=== PATIENT | female | born 1930 | race Caucasian/White ===

== ENCOUNTER 2019-02-01 08:08 | Inpatient (IN) ==
--- NOTE | 2019-02-01 08:11 | Emergency Department Note ---
Disposition Clinical Impression: Atrial fibrillation with RVR, Anemia, UTI (urinary tract infection) Disposition: Home, Self-Care Condition: Fair General Adult HPI - General Stated complaint: Tachycardia Time Seen by Provider: 02/01/19 08:09 Nursing Notes Reviewed: Yes Vital Signs Reviewed: Yes - Related Data Home Medications Medication Instructions Recorded Confirmed Cipro 06/30/17 Risperdal 0.5 mg PO 06/30/17 amLODIPine 5 mg PO DAILY 06/30/17 02/01/19 Bisacodyl 10 mg RC PRN PRN 02/01/19 02/01/19 Buspirone HCl 5 mg PO TID 02/01/19 02/01/19 Citalopram 10 mg PO DAILY 02/01/19 02/01/19 Cranberry 450 mg PO DAILY 02/01/19 02/01/19 Memantine 5 mg PO BID 02/01/19 02/01/19 MiraLAX 17 gm PO PRN PRN 02/01/19 02/01/19 Tylenol 325mg SUPP 325 mg PO DAILY 02/01/19 02/01/19 Ultram 50 mg PO PRN PRN 02/01/19 02/01/19 Previous Rx's Medication Instructions Recorded Nitrofurantoin Monohyd/M-Cryst 100 mg PO BID #10 capsule 06/30/17 [Macrobid 100 mg Capsule] Phenazopyridine HCl [Pyridium] 200 mg PO TIDAC #6 tab 06/30/17 Allergies Allergy/AdvReac Type Severity Reaction Status Date / Time Penicillins [PCN] Allergy Rash Verified 06/30/17 13:12 Sulfa (Sulfonamide Allergy Hives Verified 02/01/19 12:37 Antibiotics) Past Medical History - Past Medical History Medical history: Reports: dementia, hypertension, myocardial infarction, renal disease, other Psychiatric history: Reports: no psych history - Social History Smoking Status: Never smoker Smokeless Tobacco Status: No Alcohol use: Reports: none Drug use: Reports: none Course Vital Signs Temperature 98.5 F 02/01/19 08:09 Pulse Rate 118 02/01/19 08:09 Respiratory Rate 22 02/01/19 08:09 Blood Pressure 112/76 02/01/19 08:09 O2 Sat by Pulse Oximetry 95 02/01/19 08:09 Temperature 98.2 F 02/01/19 11:31 Pulse Rate 102 02/01/19 11:31 Respiratory Rate 22 02/01/19 11:31 Blood Pressure 122/79 02/01/19 11:31 O2 Sat by Pulse Oximetry 89 02/01/19 11:31 Oxygen Delivery Oxygen Delivery Room Air Medical Decision Making - MDM Narrative Medical decision making narrative: Chest X-Ray 02/01/19 08:09 IMPRESSION: Cardiomegaly with pulmonary vascular congestion and small left pleural effusion with left basilar atelectasis/pneumonitis. D/ / Pollo Alaniz / Pollo Alaniz Interpreting Provider: Pollo Alaniz 0930 hrs.: Patient does have A. fib with RVR what appears to be new. Started her on Cardizem. Also put her on aspirin chest x-ray shows some pulmonary edema surrounding out on a BMP and then admit. Son's in agreement with plan. - Lab Data Result diagrams: 02/01/19 08:31 02/01/19 08:31 Lab Results 02/01/19 02/01/19 02/01/19 Range/Units 08:31 08:31 08:31 WBC 5.8 (4.3-11.1) K/mcL RBC 2.85 L (3.82-4.97) M/mcL Hgb 8.9 L (11.5-15.4) g/dL Hct 29.3 L (35.3-44.9) % MCV 102.8 H (83.0-100.0) fL MCH 31.2 (28.0-33.3) pg MCHC 30.4 L (31.6-35.5) g/dL RDW 19.6 H (11.5-14.5) % Plt Count 195 (140-400) K/mcL MPV 11.1 (9.4-12.4) fL Immature Gran % 0.7 (0-4) % Seg Neutrophils % 78.9 % Lymphocytes % 10.9 % Monocytes % 6.9 % Eosinophils % 1.9 % Basophils % 0.7 % Neutrophils # 4.6 (1.6-8.9) K/mcL Lymphocytes # 0.6 (0.6-4.6) K/mcL Monocytes # 0.4 (0.0-1.3) K/mcL Eosinophils # 0.1 (0.0-0.6) K/mcL Basophils # 0.0 (0.0-0.2) K/mcL Nucleated RBCs/100 WBC 0.5 H (0) /100 WBC PT 13.1 H (9.4-12.1) Seconds INR 1.2 APTT 34.9 (26.0-36.0) Seconds D-Dimer 2764 H (0-500) ng/mLFEU Sodium 141 (136-145) mEq/L Potassium 4.3 (3.5-5.1) mEq/L Chloride 109 H (98-107) mEq/L Carbon Dioxide 23 (23-29) mEq/L BUN 19 (8-23) mg/dL Creatinine 0.97 (0.60-1.20) mg/dL Est GFR ( Amer) > 60 (> 60) Est GFR (Non-Af Amer) 54 L (> 60) BUN/Creatinine Ratio 20 (6-26) Glucose 109 H (70-105) mg/dL Calculated Osmolality 295 (280-300) Calcium 8.9 (8.6-10.3) mg/dL Troponin I < 0.03 (< 0.04) ng/mL B-Natriuretic Peptide (Less than 100) pg/mL TSH 2.833 (0.340-5.600) mcIU/mL Urine Color (Yellow) Urine Clarity (Clear) Urine pH (5.0-8.0) pH Units Ur Specific [place] (1.010-1.025) Urine Protein (Neg-Trace) mg/dL Urine Glucose (UA) (Normal) mg/dL Urine Ketones (Negative) mg/dL Urine Blood (Negative) Urine Nitrite (Negative) Urine Bilirubin (Negative) Urine Urobilinogen (Normal) mg/dL Ur Leukocyte Esterase (Negative) Urine Microscopic RBC (0-3) per hpf Urine Microscopic WBC (0-3) per hpf Ur Squamous Epith Cells (None-Few) per lpf Ur Renal Epithelial Cell (None-Few) per hpf Urine Bacteria (None-Few) per hpf Hyaline Casts (None-Few) per lpf Ur Culture Indicated? (NO) 02/01/19 02/01/19 Range/Units 08:31 08:53 WBC (4.3-11.1) K/mcL RBC (3.82-4.97) M/mcL Hgb (11.5-15.4) g/dL Hct (35.3-44.9) % MCV (83.0-100.0) fL MCH (28.0-33.3) pg MCHC (31.6-35.5) g/dL RDW (11.5-14.5) % Plt Count (140-400) K/mcL MPV (9.4-12.4) fL Immature Gran % (0-4) % Seg Neutrophils % % Lymphocytes % % Monocytes % % Eosinophils % % Basophils % % Neutrophils # (1.6-8.9) K/mcL Lymphocytes # (0.6-4.6) K/mcL Monocytes # (0.0-1.3) K/mcL Eosinophils # (0.0-0.6) K/mcL Basophils # (0.0-0.2) K/mcL Nucleated RBCs/100 WBC (0) /100 WBC PT (9.4-12.1) Seconds INR APTT (26.0-36.0) Seconds D-Dimer (0-500) ng/mLFEU Sodium (136-145) mEq/L Potassium (3.5-5.1) mEq/L Chloride (98-107) mEq/L Carbon Dioxide (23-29) mEq/L BUN (8-23) mg/dL Creatinine (0.60-1.20) mg/dL Est GFR ( Amer) (> 60) Est GFR (Non-Af Amer) (> 60) BUN/Creatinine Ratio (6-26) Glucose (70-105) mg/dL Calculated Osmolality (280-300) Calcium (8.6-10.3) mg/dL Troponin I (< 0.04) ng/mL B-Natriuretic Peptide 631 H (Less than 100) pg/mL TSH (0.340-5.600) mcIU/mL Urine Color Dark Yellow (Yellow) Urine Clarity Cloudy A (Clear) Urine pH 5.0 (5.0-8.0) pH Units Ur Specific [place] 1.025 (1.010-1.025) Urine Protein 30 H (Neg-Trace) mg/dL Urine Glucose (UA) Normal (Normal) mg/dL Urine Ketones Negative (Negative) mg/dL Urine Blood Small H (Negative) Urine Nitrite Negative (Negative) Urine Bilirubin Negative (Negative) Urine Urobilinogen Normal (Normal) mg/dL Ur Leukocyte Esterase Moderate H (Negative) Urine Microscopic RBC 5-15 H (0-3) per hpf Urine Microscopic WBC 5-15 H (0-3) per hpf Ur Squamous Epith Cells Many H (None-Few) per lpf Ur Renal Epithelial Cell Many H (None-Few) per hpf Urine Bacteria Many H (None-Few) per hpf Hyaline Casts None Seen (None-Few) per lpf Ur Culture Indicated? YES A (NO) Critical Care Time Critical Care Time: Yes Total Critical Care Time: 30 Attestation: Excluding separately billable procedures. Attestation Statement - Attestation Attestation: This documentation is done with the assistance of Dragon dictation. Despite efforts made to ensure accuracy, there may be inaccuracies in tree specialist or spelling and typographical errors. I examined this patient and my medical decision-making was reviewed with the Resident Physician. I agree with the documented findings, disposition and treatment plan as described except to the extent set forth below. Patient was seen and evaluated today by Dr. Adair and myself, I agree with her evaluation and management plan, I supervised the care the patient's stay. Patient was transported in per EMS. She is in a memory care unit and is a DNR CC comfort care. Her son is apparently on away N. She is not able to tell us that anything wrong she denies any problems. Apparently they sent her in case she was tachycardic at heart rate of 1:15 at the nursing facility. We did an EKG and chest x-ray that we will talk to the son and see what he would like to have done.
--- NOTE | 2019-02-01 08:17 | Emergency Department Note ---
Disposition Clinical Impression: Atrial fibrillation with RVR Anemia Qualifiers: Anemia type: unspecified type Qualified Code(s): D64.9 - Anemia, unspecified UTI (urinary tract infection) Qualifiers: Urinary tract infection type: acute cystitis Hematuria presence: with hematuria Qualified Code(s): N30.01 - Acute cystitis with hematuria Disposition: Home, Self-Care Condition: Fair General Adult HPI - General Chief complaint: ED Arrhythmia/Palpitations Stated complaint: Tachycardia Time Seen by Provider: 02/01/19 08:09 Nursing Notes Reviewed: Yes Vital Signs Reviewed: Yes - History of Present Illness HPI Narrative: 80-year-old female with history of dementia, CAD who presents the emergency room with complaints of tachycardia. The patient is a longtime nursing facility resident and was noted to have tachycardia in the 120s. She has no history of atrial fibrillation but the son is unsure of her medications. She has been on antibiotics for a urinary tract infection, starting last Monday. The patient's history is limited given the patient has dementia. - Related Data Home Medications Medication Instructions Recorded Confirmed Cipro 06/30/17 Risperdal 06/30/17 amLODIPine 06/30/17 Bisacodyl 10 mg RC PRN PRN 02/01/19 02/01/19 Buspirone HCl 5 mg PO TID 02/01/19 02/01/19 Citalopram 10 mg PO DAILY 02/01/19 02/01/19 Cranberry 450 mg PO DAILY 02/01/19 02/01/19 Memantine 5 mg PO BID 02/01/19 02/01/19 MiraLAX 17 gm PO PRN PRN 02/01/19 02/01/19 Tylenol 325mg SUPP 325 mg PO DAILY 02/01/19 02/01/19 Ultram 50 mg PO PRN PRN 02/01/19 02/01/19 Previous Rx's Medication Instructions Recorded Nitrofurantoin Monohyd/M-Cryst 100 mg PO BID #10 capsule 06/30/17 [Macrobid 100 mg Capsule] Phenazopyridine HCl [Pyridium] 200 mg PO TIDAC #6 tab 06/30/17 Allergies Allergy/AdvReac Type Severity Reaction Status Date / Time Penicillins [PCN] Allergy Rash Verified 06/30/17 13:12 Review of Systems: ROS per history of present illness, all other systems reviewed and negative or normal. All systems ED: reviewed and negative except as stated. Review of Systems: As Per HPI Past Medical History - Past Medical History Medical history: Reports: dementia, hypertension, myocardial infarction, renal disease, other Psychiatric history: Reports: no psych history - Social History Smoking Status: Never smoker Smokeless Tobacco Status: No Alcohol use: Reports: none Drug use: Reports: none Physical Exam General: Conversant. No apparent distress. Follow commands. Appears stated age. Neck: No JVD. Trachea midline. Neck supple. Eyes: PERRL. No scleral icterus. HENT: Normocephalic and atraumatic. Moist mucus membranes. Cardiovascular: Tachycardic, irregularly irregular rhythm. Normal S1 and S2. No murmurs appreciated. Normal capillary refill. Extremities well perfused with 2+ distal pulses bilaterally. No edema. Pulmonary: Normal and equal breath sounds bilaterally, anteriorly and posteriorly. No wheezes, rales, or rhonchi. Not in respiratory distress. Speaks in full sentences. Abdomen: Soft, nondistended, and tontender. No bruits or masses. No guarding. Neuro: Alert, not oriented to time or place. No slurred speech. No focal deficits noted. Skin: No rashes noted on visualized skin. Musculoskeletal: No bony abnormalities visualized. Moves all extremities. Psych: Normal mood. Pleasant. Makes appropriate eye contact. Course - Consultations Consultation #1: Discussed case with specialty person, Dr. Hi who will consult to see the patient. He defers selection for anti-coagulation to hospitalist. Time: 10:21 Vital Signs Temperature 98.5 F 02/01/19 08:09 Pulse Rate 118 02/01/19 08:09 Respiratory Rate 22 02/01/19 08:09 Blood Pressure 112/76 02/01/19 08:09 O2 Sat by Pulse Oximetry 95 02/01/19 08:09 Temperature 98.2 F 02/01/19 11:31 Pulse Rate 102 02/01/19 11:31 Respiratory Rate 22 02/01/19 11:31 Blood Pressure 122/79 02/01/19 11:31 O2 Sat by Pulse Oximetry 89 02/01/19 11:31 Oxygen Delivery Oxygen Delivery Room Air Medical Decision Making - MDM Narrative Medical decision making narrative: Patient's an 88-year-old female with history of dementia who presents the emergency department due to tachycardia. This was found at her alf facility. On arrival the patient is alert and has no complaints but history is limited given her dementia. EKG shows atrial fibrillation with rapid ventricular rate with rate in the 120s to 130s. We did obtain CBC, BMP, BNP, chest x-ray which showed chronic baseline anemia without significant electrolyte abdomen now days. Chest x-ray shows cardiomegaly which is new from prior. The patient was given 10 mg bolus of Cardizem as well as started on a Cardizem drip she is now in the 70s. She did have mild hypotension with the bolus of Cardizem and was therefore given small fluid bolus. I discussed the case with on-call hospitalist, Dr. Webster who requests further evaluation for PE and consultation with cardiology to determine need for anticoagulation. D-dimer placed which hospitalist is to follow-up on. Spoke with specialty person, Dr. Hi who agrees with plan for admission and continued Cardizem drip but defers choice of anticoagulation given the patient's many risk factors including dementia and baseline anemia to the hospitalist. The patients Son is available at agrees with plan for admission. All questions answered. - Medical Records Medical records reviewed: Yes I reviewed the patient's medical records. - Lab Data Lab results reviewed: Yes I reviewed the patient's lab results. Result diagrams: 02/01/19 08:31 02/01/19 08:31 Lab Results 02/01/19 02/01/19 02/01/19 Range/Units 08:31 08:31 08:31 WBC 5.8 (4.3-11.1) K/mcL RBC 2.85 L (3.82-4.97) M/mcL Hgb 8.9 L (11.5-15.4) g/dL Hct 29.3 L (35.3-44.9) % MCV 102.8 H (83.0-100.0) fL MCH 31.2 (28.0-33.3) pg MCHC 30.4 L (31.6-35.5) g/dL RDW 19.6 H (11.5-14.5) % Plt Count 195 (140-400) K/mcL MPV 11.1 (9.4-12.4) fL Immature Gran % 0.7 (0-4) % Seg Neutrophils % 78.9 % Lymphocytes % 10.9 % Monocytes % 6.9 % Eosinophils % 1.9 % Basophils % 0.7 % Neutrophils # 4.6 (1.6-8.9) K/mcL Lymphocytes # 0.6 (0.6-4.6) K/mcL Monocytes # 0.4 (0.0-1.3) K/mcL Eosinophils # 0.1 (0.0-0.6) K/mcL Basophils # 0.0 (0.0-0.2) K/mcL Nucleated RBCs/100 WBC 0.5 H (0) /100 WBC PT 13.1 H (9.4-12.1) Seconds INR 1.2 APTT 34.9 (26.0-36.0) Seconds D-Dimer 2764 H (0-500) ng/mLFEU Sodium 141 (136-145) mEq/L Potassium 4.3 (3.5-5.1) mEq/L Chloride 109 H (98-107) mEq/L Carbon Dioxide 23 (23-29) mEq/L BUN 19 (8-23) mg/dL Creatinine 0.97 (0.60-1.20) mg/dL Est GFR ( Amer) > 60 (> 60) Est GFR (Non-Af Amer) 54 L (> 60) BUN/Creatinine Ratio 20 (6-26) Glucose 109 H (70-105) mg/dL Calculated Osmolality 295 (280-300) Calcium 8.9 (8.6-10.3) mg/dL Troponin I < 0.03 (< 0.04) ng/mL B-Natriuretic Peptide (Less than 100) pg/mL TSH 2.833 (0.340-5.600) mcIU/mL Urine Color (Yellow) Urine Clarity (Clear) Urine pH (5.0-8.0) pH Units Ur Specific [place] (1.010-1.025) Urine Protein (Neg-Trace) mg/dL Urine Glucose (UA) (Normal) mg/dL Urine Ketones (Negative) mg/dL Urine Blood (Negative) Urine Nitrite (Negative) Urine Bilirubin (Negative) Urine Urobilinogen (Normal) mg/dL Ur Leukocyte Esterase (Negative) Urine Microscopic RBC (0-3) per hpf Urine Microscopic WBC (0-3) per hpf Ur Squamous Epith Cells (None-Few) per lpf Ur Renal Epithelial Cell (None-Few) per hpf Urine Bacteria (None-Few) per hpf Hyaline Casts (None-Few) per lpf Ur Culture Indicated? (NO) 02/01/19 02/01/19 Range/Units 08:31 08:53 WBC (4.3-11.1) K/mcL RBC (3.82-4.97) M/mcL Hgb (11.5-15.4) g/dL Hct (35.3-44.9) % MCV (83.0-100.0) fL MCH (28.0-33.3) pg MCHC (31.6-35.5) g/dL RDW (11.5-14.5) % Plt Count (140-400) K/mcL MPV (9.4-12.4) fL Immature Gran % (0-4) % Seg Neutrophils % % Lymphocytes % % Monocytes % % Eosinophils % % Basophils % % Neutrophils # (1.6-8.9) K/mcL Lymphocytes # (0.6-4.6) K/mcL Monocytes # (0.0-1.3) K/mcL Eosinophils # (0.0-0.6) K/mcL Basophils # (0.0-0.2) K/mcL Nucleated RBCs/100 WBC (0) /100 WBC PT (9.4-12.1) Seconds INR APTT (26.0-36.0) Seconds D-Dimer (0-500) ng/mLFEU Sodium (136-145) mEq/L Potassium (3.5-5.1) mEq/L Chloride (98-107) mEq/L Carbon Dioxide (23-29) mEq/L BUN (8-23) mg/dL Creatinine (0.60-1.20) mg/dL Est GFR ( Amer) (> 60) Est GFR (Non-Af Amer) (> 60) BUN/Creatinine Ratio (6-26) Glucose (70-105) mg/dL Calculated Osmolality (280-300) Calcium (8.6-10.3) mg/dL Troponin I (< 0.04) ng/mL B-Natriuretic Peptide 631 H (Less than 100) pg/mL TSH (0.340-5.600) mcIU/mL Urine Color Dark Yellow (Yellow) Urine Clarity Cloudy A (Clear) Urine pH 5.0 (5.0-8.0) pH Units Ur Specific [place] 1.025 (1.010-1.025) Urine Protein 30 H (Neg-Trace) mg/dL Urine Glucose (UA) Normal (Normal) mg/dL Urine Ketones Negative (Negative) mg/dL Urine Blood Small H (Negative) Urine Nitrite Negative (Negative) Urine Bilirubin Negative (Negative) Urine Urobilinogen Normal (Normal) mg/dL Ur Leukocyte Esterase Moderate H (Negative) Urine Microscopic RBC 5-15 H (0-3) per hpf Urine Microscopic WBC 5-15 H (0-3) per hpf Ur Squamous Epith Cells Many H (None-Few) per lpf Ur Renal Epithelial Cell Many H (None-Few) per hpf Urine Bacteria Many H (None-Few) per hpf Hyaline Casts None Seen (None-Few) per lpf Ur Culture Indicated? YES A (NO) - Radiology Data Radiology results reviewed: Yes I reviewed the patient's radiology results. Chest X-Ray 02/01/19 08:09 IMPRESSION: Cardiomegaly with pulmonary vascular congestion and small left pleural effusion with left basilar atelectasis/pneumonitis. D/ / Pollo Alaniz / Pollo Alaniz Interpreting Provider: Pollo Alaniz - EKG Data EKG #1 EKG attestation: Yes I reviewed and interpreted this EKG. EKG results narrative: Atrial fibrillation rate of 127. When compared with prior atrial fibrillation with rapid ventricular rate is new as previous on 08/02/17 showed normal sinus rhythm.
[2019-02-01 08:41] LABS: Basophils % 0.7 %; Eosinophils # 0.1 K/mcL (0.0-0.6); Eosinophils % 1.9 %; Hematocrit 29.3 % (35.3-44.9); Hemoglobin 8.9 g/dL (11.5-15.4); Immature Granulocytes % 0.7 % (0-4); Lymphocytes # 0.6 K/mcL (0.6-4.6); Lymphocytes % 10.9 %; Mean Corpuscular HGB Conc 30.4 g/dL (31.6-35.5); Mean Corpuscular Hemoglobin 31.2 pg (28.0-33.3); Mean Corpuscular Volume 102.8 fL (83.0-100.0); Mean Platelet Volume 11.1 fL (9.4-12.4); Monocytes # 0.4 K/mcL (0.0-1.3); Monocytes % 6.9 %; Neutrophils # 4.6 K/mcL (1.6-8.9); Nucleated Red Blood Cells 0.5 /100 WBC (0); Platelet Count 195 K/mcL (140-400); Red Blood Count 2.85 M/mcL (3.82-4.97); Red Cell Distribution Width 19.6 % (11.5-14.5); Segmented Neutrophils % 78.9 %
[2019-02-01 08:50] LABS: INR 1.2; Prothrombin Time 13.1 Seconds (9.4-12.1)
[2019-02-01 08:52] LABS: Activated Partial Thrombo Time 34.9 Seconds (26.0-36.0)
[2019-02-01 09:02] LABS: BUN/Creatinine Ratio 20 (6-26); Blood Urea Nitrogen 19 mg/dL (8-23); Calcium 8.9 mg/dL (8.6-10.3); Carbon Dioxide 23 mEq/L (23-29); Chloride 109 mEq/L (98-107); Glucose 109 mg/dL (70-105); Osmolality,Calculated 295 (280-300); Potassium 4.3 mEq/L (3.5-5.1); Sodium 141 mEq/L (136-145); Troponin I < 0.03 ng/mL (< 0.04); eGFR For Non-African Americans 54 (> 60)
[2019-02-01 09:15] LABS: Thyroid Stimulating Hormone 2.833 mcIU/mL (0.340-5.600)
[2019-02-01 09:17] LABS: Bilirubin,Urine Negative (Negative); Blood,Urine Small (Negative); Clarity,Urine Cloudy (Clear); Color,Urine Dark Yellow (Yellow); Glucose,Urine (UA) Normal (Normal); Ketones,Urine Negative (Negative); Leukocyte Esterase,Urine Moderate (Negative); Nitrite,Urine Negative (Negative); Protein,Urine 30 mg/dL (Neg-Trace); Specific Gravity,Urine 1.025 (1.010-1.025); Urobilinogen,Urine Normal (Normal)
[2019-02-01 09:18] LABS: Squamous Epithelial Cell,Urine Many per lpf (None-Few)
[2019-02-01] MEDS ORDERED: Aspirin 81 MG TAB.CHEW PO STA (09:30)
[2019-02-01 09:32] LABS: Renal Epithelial Cells,Urine Many per hpf (None-Few)
[2019-02-01 09:33] LABS: Bacteria,Urine Many per hpf (None-Few); Hyaline Casts,Urine None Seen per lpf (None-Few)
[2019-02-01] MEDS ORDERED: 0.9 % Sodium Chloride 1,000 ML IVC ONE (10:02)
[2019-02-01] MEDS ORDERED: cefTRIAXone 1,000 MG in Water for inj. (sterile) 20 ML 10 ML IVP ONE (10:05)
[2019-02-01] MEDS ORDERED: Naloxone 0.4 MG/ML INJ IVP PRN (10:28)
[2019-02-01] MEDS ORDERED: 0.9 % Sodium Chloride 1,000 ML IVC SCH (10:30)
--- NOTE | 2019-02-01 10:35 | Internal Med History&Physical ---
Date of Encounter: 02/01/19 Time of Encounter: 10:33 Internal Medicine - H&P: HPI Chief complaint: rapid heart rate Admitted From: [facility] Plans for Post Hospital Care: Transfer Intermediate Facility History of present illness: Ms. Baldwin is a 88 year old female with history of CAD status post multiple stents last one 6 years ago and dementia presented to the emergency department from [facility] with tachycardia. As per son at bedside he was contacted by [facility] about patient's heart rate being in the 150s so was decided that she should come to the emergency department for further evaluation of her heart rate. Patient was seen and examined at bedside. Tony nted so most of the history was obtained by the family at bedside. Currently patient has no complaints and is unsure as to why she is in the hospital, when asked if she has any chest pain, palpitations, shortness of breath, cough, upper respiratory tract infections, leg swelling, orthopnea, PND, cough, nausea, vomiting, diarrhea she answers no. As per family at bedside she is extensive cardiac history with multiple stents placed last fall was 6 years ago. They are not sure as to what medications she is currently taking as the physician at the nursing facility Dr. Roldan has been adjusting her medications since she started living there. She ambulates with a walker and as per family she ambulates almost daily they deny prolonged immobilization. She denies any hematemesis, melena, hematochezia. While the emergency department she was found to be in A. fib with RVR, was started on Cardizem drip and cardiology was consulted for further recommendations and she was endorsed for further admission and management of her atrial fibrillation. I discussed CODE STATUS with the family and as per family they had already signed a DNR/DNI form of [facility] and would like to continue with the same CODE STATUS here at the hospital. Discussed anticoagulation and her increased risk of stroke in the family would like to hold off on anticoagulation understanding the risk and benefits until cardiology evaluates the patient. Past Med Surg Social Fam HX - Past Medical History Medical history: arthritis, dementia, hypertension, myocardial infarction, osteoporosis, renal disease, other Additional medical history: Alzheimers. Atherosclerosis. Diverticulosis. Insomnia Psychiatric history: anxiety - Past Surgical History Surgical History: angioplasty/stent (last one 6 years ago ) - Social History Smoking Status: Never smoker Smokeless Tobacco Status: No Alcohol use: none Drug use: none Internal Medicine - H&P: Meds Cipro 06/30/17 [History] Nitrofurantoin Monohyd/M-Cryst [Macrobid 100 mg Capsule] 100 mg PO BID #10 capsule 06/30/17 [Rx] Phenazopyridine HCl [Pyridium] 200 mg PO TIDAC #6 tab 06/30/17 [Rx] Risperdal 0.5 mg PO 06/30/17 [History] amLODIPine 5 mg PO DAILY 06/30/17 [History] Bisacodyl 10 mg RC PRN PRN 02/01/19 [History] Buspirone HCl 5 mg PO TID 02/01/19 [History] Citalopram 10 mg PO DAILY 02/01/19 [History] Cranberry 450 mg PO DAILY 02/01/19 [History] Memantine 5 mg PO BID 02/01/19 [History] MiraLAX 17 gm PO PRN PRN 02/01/19 [History] Tylenol 325mg SUPP 325 mg PO DAILY 02/01/19 [History] Ultram 50 mg PO PRN PRN 02/01/19 [History] Allergy/AdvReac Type Severity Reaction Status Date / Time Penicillins [PCN] Allergy Rash Verified 06/30/17 13:12 All Systems PM: A 10-system review of systems was performed and is negative for pertinent findings except as documented above in the HPI. - Constitutional Vitals: Temp Pulse Resp BP Pulse Ox 98.5 F 74 20 109/73 91 02/01/19 08:09 02/01/19 10:27 02/01/19 10:27 02/01/19 10:27 02/01/19 10:27 Exam: General: Patient is alert, no acute distress, pleasantly demented Head: atraumatic, normocephalic, Eye: normal appearance, PERRL, no scleral icterus, no conjunctival injection ENT: mucous membranes moist, normal external ear exam Neck: normal inspection, trachea midline, full ROM Chest: normal inspection, symmetric chest rise Respiratory: Good respiratory effort. Decreased breath sounds bilaterally, cannot appreciate any wheezing, occasional crackles in the posterior lung field. Cardiovascular: Irregularly irregular s1 and s2 No clicks, rubs, gallops, or murmors. Abdomen: Bowel sounds present normoactive x-4 quadrants. Abdomen is soft, nondistended. no Epigastric tenderness. No guarding or rebound. No organomegaly noted, musculoskeletal: Spontaneously moving all extremities. no edema, no calf tenderness, extensive varicose veins Skin: warm, dry, intact. Neuro: Alert and not oriented. Only answers yes or no to questions. This is her baseline as per family at bedside. Speeches comprehendible, no focal deficits Psych: Patient's affect is normal Internal Med - H&P Results - Labs CBC & Chem 7: 02/01/19 08:31 02/01/19 08:31 Labs: Short CBC 02/01/19 Range/Units 08:31 WBC 5.8 (4.3-11.1) K/mcL Hgb 8.9 L (11.5-15.4) g/dL Hct 29.3 L (35.3-44.9) % Plt Count 195 (140-400) K/mcL Neutrophils # 4.6 (1.6-8.9) K/mcL BMP 02/01/19 08:31 Sodium 141 Potassium 4.3 Chloride 109 H Carbon Dioxide 23 BUN 19 Creatinine 0.97 Glucose 109 H Calcium 8.9 Cardiac Enzymes 02/01/19 Range/Units 08:31 Troponin I < 0.03 (< 0.04) ng/mL Urine 02/01/19 Range/Units 08:53 Urine Color Dark Yellow (Yellow) Urine Clarity Cloudy A (Clear) Urine pH 5.0 (5.0-8.0) pH Units Ur Specific Herod 1.025 (1.010-1.025) Urine Protein 30 H (Neg-Trace) mg/dL Urine Glucose (UA) Normal (Normal) mg/dL - EKG Data -: EKG Interpreted by Myself (Atrial fibrillation with RVR, QT 503 Q waves in the anteroseptal leads) - Impressions ITS Impressions Chest X-Ray 02/01/19 08:09 IMPRESSION: Cardiomegaly with pulmonary vascular congestion and small left pleural effusion with left basilar atelectasis/pneumonitis. D/ / Pollo Alaniz / Pollo Alaniz Interpreting Provider: Pollo Alaniz - Assessment and Plan (1) Atrial fibrillation with RVR Current Visit: Yes Status: Acute Assessment and plan: First detected atrial fibrillation ? secondary to UTI and anemia Chads Vasc 5 Was started on Cardizem drip in the emergency department- continue Cardiology was consulted in the emergency department will follow recommendations I discussed anticoagulation with the family and they would like to hold off for now until cardiology evaluates the patient understanding the risks and benefits including stroke risks Echocardiogram troponin <0.03 TSH 2.8 (2) UTI (urinary tract infection) Current Visit: Yes Status: Resolved Assessment and plan: Continue with ceftriaxone Follow urine cultures Qualifiers: Urinary tract infection type: acute cystitis Hematuria presence: with hematuria Qualified Code(s): N30.01 - Acute cystitis with hematuria (3) Anemia Current Visit: Yes Status: Acute Assessment and plan: Acute on chronic Macrocytic anemia Hemoglobin is 8.9 was 9.8 on 11/29/2018. No signs of bleeding We will send B12, folate, iron panel, reticulocyte count, stool guaiac. Continue to monitor H&H closely Transfuse below 8 as she has history of cardiac disease. avoid antiplatelets and anticoagulation or NSAIDs follow H/H Q8H type an screen stat Qualifiers: Anemia type: unspecified type Qualified Code(s): D64.9 - Anemia, unspecified (4) Hypertension Current Visit: Yes Status: Acute Assessment and plan: Continue with home medications if not contraindicated. Qualifiers: Hypertension type: essential hypertension Qualified Code(s): I10 - Essential (primary) hypertension (5) Dementia Current Visit: Yes Status: Acute Assessment and plan: Continue with home medications if not contraindicated Fall precautions Qualifiers: Dementia type: unspecified type Dementia behavioral disturbance: without behavioral disturbance Qualified Code(s): F03.90 - Unspecified dementia without behavioral disturbance (6) Prolonged QT interval Current Visit: Yes Status: Acute Assessment and plan: QT of 502 was treated for UTI with Abx at halfway ?ciprofloxacin Avoid QT prolonging medications Magnesium ordered telemonitoring serial EKG next one at 4pm to evaluate QT (7) Goals of care, counseling/discussion Current Visit: Yes Status: Acute Assessment and plan: Goals of care discussed with and 2 children at bedside. As per family DNR CCA DNI has been signed at the halfway and they would like to continue with the same CODE STATUS while in the hospital. (8) DVT prophylaxis Current Visit: Yes Status: Acute Assessment and plan: scds - Time Spent With Patient Total time spent is greater than 50% in coordination of care (as documented) at patient's floor/unit and/or counseling patient:
[2019-02-01] MEDS ORDERED: Bisacodyl 10 MG RECTAL SUPPOSITORY RC PRN (11:01)
[2019-02-01 12:06] LABS: Immature Reticulocyte % 32.2 % (11.0-38.0); Retculocyte # 0.07 M/mcL (0.05-0.10); Reticulocyte % 2.6 % (1.6-2.8)
[2019-02-01 12:52] LABS: Folate > 22.3 ng/mL (3.0-16.0); Vitamin B12 486 pg/mL (250-1100)
[2019-02-01] MEDS ORDERED: 0.9 % Sodium Chloride 1,000 ML ONE (13:26)
--- NOTE | 2019-02-01 13:31 | Event Note ---
Date of Encounter: 02/01/19 Time of Encounter: 13:24 - Cardiology Event Note Attempted to see patient for consult. Patient with history of alzheimer's. Currently patient becoming more agitated and confused. Daughter at bedside trying to reason with patient and demanding that nurses give her "nerve medication." Daughter and patient unable to participate in conversation or exam. Primary team notified per RN. HR controlled prior to agitated state. Continue rate control. Ideally director of music AC would be recommended as she is high risk for CVA. Given anemia would defer AC until further evaluation of anemia. Daughter was able to say that she has no known history of anemia. She is a high fall risk also.
[2019-02-01] MEDS ORDERED: Isovue-370 500 ML BOTTLE IVP ONE (13:42)
[2019-02-01] MEDS: Pantoprazole 40 MG VIAL IVP SCH (13:50)
[2019-02-01] MEDS ORDERED: *HR* Heparin 5,000 UNIT/ML VIAL SQ SCH (14:00)
[2019-02-01] MEDS ORDERED: *HR* Heparin 5,000 UNIT/ML VIAL IVP PRN ×2 (15:22)
[2019-02-01] MEDS ORDERED: *HR* Heparin 5,000 UNIT/ML VIAL IVP ONE (15:22)
[2019-02-01] MEDS ORDERED: Furosemide 20 MG/2 ML VIAL IVP ONE (15:24)
[2019-02-01] MEDS ORDERED: Heparin 25,000 UNIT/250 ML D5W 25,000 UNIT/250 ML IV.SOLN IVC SCH (15:30)
[2019-02-01 15:50] LABS: Hematocrit 28.5 % (35.3-44.9); Hematocrit 28.6 % (35.3-44.9); Hemoglobin 8.6 g/dL (11.5-15.4); Mean Corpuscular HGB Conc 30.2 g/dL (31.6-35.5); Mean Corpuscular Hemoglobin 31.3 pg (28.0-33.3); Mean Corpuscular Volume 103.6 fL (83.0-100.0); Mean Platelet Volume 11.8 fL (9.4-12.4); Platelet Count 211 K/mcL (140-400); Red Blood Count 2.75 M/mcL (3.82-4.97); Red Cell Distribution Width 19.8 % (11.5-14.5)
--- NOTE | 2019-02-01 15:51 | Electrocardiograph Report ---
[address] [place] [address] Test Date: 2019-02-01 Pat Name: Jessica Baldwin Department: EXAM21 Room: 2NE27 Gender: F Roving Tester Laboratory: : 1930 Requested By: Severo Damico Order Number: [id number] Reading MD: Zoie Ospina Measurements Intervals [place] Rate: 79 P: [place]: QRS: 128 QRSD: 120 T: 99 QT: 438 QTc: 503 Interpretive Statements Atrial fibrillation Nonspecific intraventricular conduction delay Probable anterolateral infarct, age indeterm Electronically Signed On 02-01-2019 15:50:15 EDT by Zoie Ospina
[2019-02-01 15:59] LABS: INR 1.1; Prothrombin Time 12.5 Seconds (9.4-12.1)
[2019-02-01 20:57] LABS: Hematocrit 28.9 % (35.3-44.9); Hemoglobin 8.5 g/dL (11.5-15.4)
[2019-02-01] MEDS ORDERED: Perflutren Lipid Microsphere 1.3 ML in 0.9 % Sodium Chloride 8.7 ML IVP ONE (21:31)
[2019-02-02 05:31] LABS: Basophils # 0.1 K/mcL (0.0-0.2); Basophils % 0.9 %; Eosinophils # 0.1 K/mcL (0.0-0.6); Eosinophils % 2.3 %; Hematocrit 29.2 % (35.3-44.9); Hemoglobin 8.7 g/dL (11.5-15.4); Immature Granulocytes % 0.9 % (0-4); Lymphocytes # 1.1 K/mcL (0.6-4.6); Lymphocytes % 18.9 %; Mean Corpuscular HGB Conc 29.8 g/dL (31.6-35.5); Mean Corpuscular Hemoglobin 30.7 pg (28.0-33.3); Mean Corpuscular Volume 103.2 fL (83.0-100.0); Mean Platelet Volume 11.5 fL (9.4-12.4); Monocytes # 0.4 K/mcL (0.0-1.3); Monocytes % 7.1 %; Neutrophils # 3.9 K/mcL (1.6-8.9); Nucleated Red Blood Cells 0.9 /100 WBC (0); Platelet Count 223 K/mcL (140-400); Red Blood Count 2.83 M/mcL (3.82-4.97); Red Cell Distribution Width 19.8 % (11.5-14.5); Segmented Neutrophils % 69.9 %
[2019-02-02 05:48] LABS: BUN/Creatinine Ratio 18 (6-26); Blood Urea Nitrogen 16 mg/dL (8-23); Calcium 8.8 mg/dL (8.6-10.3); Carbon Dioxide 21 mEq/L (23-29); Chloride 108 mEq/L (98-107); Cholesterol 145 mg/dL (< 200); Glucose 97 mg/dL (70-105); HDL Cholesterol 29 mg/dL (40-59); LDL Cholesterol,Calculated 93 mg/dL (0-99); Osmolality,Calculated 285 (280-300); Phosphorous 3.6 mg/dL (2.7-4.5); Potassium 3.8 mEq/L (3.5-5.1); Sodium 137 mEq/L (136-145); Triglycerides 113 mg/dL (< 150); eGFR For Non-African Americans 60 (> 60)
[2019-02-02] MEDS ORDERED: Diltiazem CD (24hr) 240 MG CAPSULE PO SCH (09:00)
[2019-02-02] MEDS ORDERED: cefTRIAXone 2,000 MG in 0.9 % Sodium Chloride Mini Bag 100 ML IVPB SCH (09:00)
[2019-02-02] MEDS: cefTRIAXone 2,000 MG in Water for inj. (sterile) 20 ML 20 ML IVP SCH (09:12)
[2019-02-02] MEDS: Pantoprazole 40 MG VIAL IVP SCH (09:12)
--- NOTE | 2019-02-02 09:43 | Electrocardiograph Report ---
[place] [address] Test Date: 2019-02-01 Pat Name: Jessica Baldwin Department: 111 Room: 2NE18 Gender: F [employer] Car[employer] Operator: : 1930 Requested By: Eleanor Valladares Order Number: [id number] Reading MD: Eve Bermudez Measurements Intervals [place] Rate: 89 P: [place]: 0 QRS: 76 QRSD: 116 T: 109 QT: 385 QTc: 432 Interpretive Statements ATRIAL FIBRILLATION LOW QRS VOLTAGE IN EXTREMITY LEADS [QRS DEFLECTION < 0.5 mV IN LIMB LEADS] POSSIBLE ANTEROLATERAL MYOCARDIAL INFARCTION [30 ms Q WAVE IN I/aVL/V3-V6], OF INDETERMINATE AGE Electronically Signed On 02-02-2019 9:41:13 EDT by Eve Bermudez
[2019-02-02] MEDS ORDERED: Metoprolol XL (24 HR) Succ 50 MG TAB.ER.24H PO SCH (09:45)
[2019-02-02 10:32] LABS: Hematocrit 28.5 % (35.3-44.9); Hemoglobin 8.6 g/dL (11.5-15.4)
[2019-02-02] MEDS ORDERED: hydrOXYzine pamoate 25 MG CAPSULE PO PRN (11:12)
[2019-02-02] MEDS: BUSPIRONE HCL 10 MG TABLET PO SCH ×3 (11:46→22:34)
[2019-02-02] MEDS: *HR* Rivaroxaban 15 MG TABLET PO SCH ×2 (11:46→19:11)
--- NOTE | 2019-02-02 11:55 | Cardiology Consult Note ---
Date of Encounter: 02/02/19 Time of Encounter: 07:45 Assessment and Plan (1) Atrial fibrillation with RVR Current Visit: Yes Status: Acute Presented with atrial fibrillation with RVR in setting of UTI. HR now suboptimally controlled on cardizem gtt. Karson start oral toprol xl with attempt to wean off gtt. TTE showed EF 30%. Chronicity unknown. In regaurds to AC she is found to have acute PE. She will require AC. Currently on heparin. Further recs per primary team. Consider GI eval. (2) Cardiomyopathy Current Visit: Yes Status: Acute TTE shows EF 30%. Chronicity unknown. CT showed CHF. Possible history noted per breif discussion with daughter yesterday. IV lasix x1 given. Repeat as needed. Currently comfortable on exam. Toprol xl started. Continue xochitl I. She is not candidate for ischemic evaluation at this time in setting of acute PE. Low sodium diet. Strict I&O and daily weight. Qualifiers: Cardiomyopathy type: unspecified Qualified Code(s): I42.9 - Cardiomyopathy, unspecified Discussion w patient/family: The assessment and plan as outlined above was discussed with the patient and/or family members who expressed understanding and agreement. All questions were answered. Thank you for involving us in the care of your patient. Please call with any questions. History of Present Illness Consult date: 02/01/19 Consult reason: atrial fibrillation with RVR Chief complaint: ELevated HR History of present illness: Ms. Baldwin is a 88 year old female with history of CO, cardiomyopathy (per daughter), HTN, and severe alzheimers. She was sent to ED from [facility] facility when she was noted to have elevated HR. She is found to have atrial fibrillation with RVR. CTA is positive for PE. Daughter denied previous history. States that patient has not followed with cardiology in some time. Cardiology consulted for AC recommendations. Patient is fall risk per nurses. She is constantly trying to get out of bed and is unsteady. She was also noted to have anemia on admission. Per nursing staff she was noted to have bright red blood in her stool. Pt agitated through the night and now resting quietly. Past Med Surg Social Fam HX - Past Medical History Medical history: arthritis, coronary artery disease, dementia, hypertension, myocardial infarction, osteoporosis, renal disease, other Additional medical history: Alzheimers. Atherosclerosis. Diverticulosis. Insomnia Psychiatric history: anxiety - Past Surgical History Surgical History: angioplasty/stent - Social History Smoking Status: Never smoker Smokeless Tobacco Status: No Alcohol use: none Drug use: none - Family History Mother Living Status: Hx Family Respiratory Disorders: Yes Medications and Allergies RisperiDONE [Risperdal] 0.5 mg PO Q48H 06/30/17 [History] amLODIPine [Norvasc] 5 mg PO DAILY 06/30/17 [History] Acetaminophen [Tylenol] 650 mg PO DAILY 02/01/19 [History] Bisacodyl [Gentle Laxative] 10 mg RC DAILY PRN 02/01/19 [History] Buspirone HCl [Buspar] 5 mg PO BID 02/01/19 [History] Citalopram Hydrobromide [Citalopram HBr] 10 mg PO DAILY 02/01/19 [History] Cranberry Fruit [Cranberry] 450 mg PO DAILY 02/01/19 [History] Memantine HCl 5 mg PO BID 02/01/19 [History] Polyethylene Glycol 3350 [MiraLAX] 17 gm PO PRN PRN 02/01/19 [History] Tramadol HCl [Ultram] 50 mg PO Q8H PRN 02/01/19 [History] Allergy/AdvReac Type Severity Reaction Status Date / Time Penicillins [PCN] Allergy Rash Verified 06/30/17 13:12 Sulfa (Sulfonamide Allergy Hives Verified 02/01/19 12:37 Antibiotics) All Systems Review: The remainder of the systems were reviewed and are negative Physical Examination Vital Signs, Last 4 Hours Temp Pulse Resp BP Pulse Ox 02/02/19 11:20 98.1 F 111 16 127/91 88 General: Other (Frail elederly female, confused ) HEENT: Atraumatic, Normocephaly, Mucus Membranes Moist Neck: No JVD, Normal carotid pulses Cardiac: Other (Irregular.) Lungs: Normal Breath Sounds, No Wheeze, Rales, Rhonchi Neuro: Alert and responsive, No focal deficits noted Abdomen: Soft, Non-Tender Skin: No rashes noted on visualized skin Musculoskeletal: No Chest Wall Tenderness Extremities: No Clubbing, No Cyanosis, No Edema, Normal Pulses Results 02/02/19 10:10 02/02/19 04:07 Lab Results 02/01/19 02/01/19 02/01/19 11:50 15:38 15:38 WBC 6.2 Hgb 8.6 L 8.6 L Hct 28.6 L 28.5 L Plt Count 211 INR Sodium Potassium Chloride Carbon Dioxide BUN Creatinine Glucose Calcium Magnesium 2.0 02/01/19 02/01/19 02/02/19 15:38 20:42 04:07 WBC 5.6 Hgb 8.5 L 8.7 L Hct 28.9 L 29.2 L Plt Count 223 INR 1.1 Sodium Potassium Chloride Carbon Dioxide BUN Creatinine Glucose Calcium Magnesium 02/02/19 02/02/19 04:07 10:10 WBC Hgb 8.6 L Hct 28.5 L Plt Count INR Sodium 137 Potassium 3.8 Chloride 108 H Carbon Dioxide 21 L BUN 16 Creatinine 0.89 Glucose 97 Calcium 8.8 Magnesium 2.0 - Imaging and Cardiology Echo: report reviewed - EKG Interpretation EKG results cardiology: personally reviewed Consult Discharge Plan - Plan Referrals: Earl Roldan [Primary Care Provider] -
--- NOTE | 2019-02-02 14:59 | Internal Med Progress Note ---
Hospitalist Progress Note - Encounter Date of Encounter: 02/02/19 Time of Encounter: 14:57 - Subjective Interval History: Pt denies acute complaints today, but her memory is poor. Son is present at bedside and mentions that she has been anxious and agitated a bit overnight but that this morning she is doing better. - Exam Vitals: Temp Pulse Resp BP Pulse Ox 98.1 F 111 16 127/91 88 02/02/19 11:20 02/02/19 11:20 02/02/19 11:20 02/02/19 11:20 02/02/19 11:20 Exam: General: NAD, good eye contact, well appearing, elderly Thoracic: Normal breath sounds b/l, no wheezing or crackles Cardio: Normal S1 and S2, irreg irreg rhythm, regular rate in 70s on my exam Abdomen: Soft, nontender Extremities: Warm, well perfused. DP pulses 2+ b/l. No edema. Skin: Intact. No rashes, bruises, or ulcers Neuro: Awake, oriented to person and place. Speech fluent. Poor memory. Hard of hearing. - Summary of Assessment and Plan Summary of Assessment and Plan: Jessica Baldwin is an 88 F w hx dementia, CAD/ICM, HFrEF 30%, A-Fib, who p/w ta chycardia, found to have HR 120s, irregular rhythm, elevated D-dimer, CTPE showing subsegmental filling defect, and dirty UA, concerning for acute PE and UTI causing A-Fib RVR. Acute PE: R subsegmental lower lobe branches seen on CTPE - d/c hep gtt - start xarelto 15 bid x21d then 20 daily to complete 3 months A-Fib RVR: much better rate control today on diltiazem gtt, pt has known HFrEF - d/c dilt as this is contraindicated in HFrEF - start toprol 50 daily - start xarelto as above UTI: UCx no growth - empiric rocephin 2g daily to complete 3 days Chronic HFrEF 30% 2/2 ICM: - Diuresis: no pedal edema or crackles, no diuresis today - start toprol as above, - start lisinopril 2.5 - consider initiation of low dose helga 12.5 prior to d/c - resume ASA - pt DNR and therefore not candidate for ICD Prolonged QT: resolved, monitor K and Mg HTN: controlled, meds as above CAD: ASA as above, not on statin Dementia: home memantine, risperdal Depression: home celexa PPx: change hep gtt to Xarelto FEN: regular, no MIVF Lines: PIV Consults: Cardio Code: DNRCC-A DNI Dispo: patient requires inpatient eval and management at this time, anticipate 1-2 days, will eventually return to [facility] Internal Medicine: Result - Labs CBC & Chem 7: 02/02/19 10:10 02/02/19 04:07 Labs: Short CBC 02/01/19 02/01/19 02/01/19 Range/Units 15:38 15:38 20:42 WBC 6.2 (4.3-11.1) K/mcL Hgb 8.6 L 8.6 L 8.5 L (11.5-15.4) g/dL Hct 28.6 L 28.5 L 28.9 L (35.3-44.9) % Plt Count 211 (140-400) K/mcL Neutrophils # (1.6-8.9) K/mcL 02/02/19 02/02/19 Range/Units 04:07 10:10 WBC 5.6 (4.3-11.1) K/mcL Hgb 8.7 L 8.6 L (11.5-15.4) g/dL Hct 29.2 L 28.5 L (35.3-44.9) % Plt Count 223 (140-400) K/mcL Neutrophils # 3.9 (1.6-8.9) K/mcL [facility] 02/02/19 04:07 Sodium 137 Potassium 3.8 Chloride 108 H Carbon Dioxide 21 L BUN 16 Creatinine 0.89 Glucose 97 Calcium 8.8 - ABG Interpretation ABG results: PT/INR, D-dimer PT 12.5 Seconds (9.4-12.1) H 02/01/19 15:38 2764 ng/mLFEU (0-500) H 02/01/19 08:31 - Impressions Impressions Echocardiogram 02/01/19 10:32 Impressions: LVEF 30%. Severe global left ventricular systolic dysfunction. Mild concentric left ventricular hypertrophy. Indeterminate diastolic function. Mild RV dysfunction. Severely dilated left atrium. Moderately dilated right atrium. Moderate-severe mitral regurgitation. Unable to estimate RVSP due to lack of TR jet. Recommend repeat limited echo with definity after rate control. Cardiology consult team notified. Left Ventricular Wall Motion: Rest Echo Findings The apex, apical inferior, mid inferior, basal inferior, apical anterior, mid anterior, basal anterior, apical septal, mid inferior septal, basal inferior septal, apical lateral, mid anterior lateral, basal anterior lateral, mid anterior septal, mid inferior lateral, basal anterior septal and basal inferior lateral montoya were hypokinetic. Findings: Study Quality * Technically sub-optimal due to clinical status. ECG Findings * Atrial fibrillation with RVR. Left Ventricle * LVEF 30%. * Normal LV chamber size. * Mild concentric left ventricular hypertrophy. * Severe global left ventricular systolic dysfunction. * Indeterminate diastolic function. * There is no LV thrombus. Right Ventricle * Normal right ventricular structure with mild dysfunction. Left Atrium * Severely dilated left atrium. Right Atrium * Moderately dilated right atrium. Interatrial Septum * Interatrial septum not well evaluated. Aortic Valve * Aortic valve not well visualized. * Moderately calcified aortic valve leaflets. * No aortic stenosis. * No aortic regurgitation. Mitral Valve * Moderate mitral annular calcification * Moderate-severe mitral regurgitation. * No mitral stenosis. Tricuspid Valve * Normal tricuspid valve structure. * No tricuspid stenosis. * Trace tricuspid regurgitation. * Unable to estimate RVSP due to lack of TR jet. * Estimated RA pressure is 8 mmHg. Pulmonic Valve * Pulmonic valve is not well visualized. * No pulmonic stenosis. * No pulmonic regurgitation. Aorta * Normally sized aortic root. Pericardium * The pericardium appears normal. IVC * The IVC is not dilated. * < 50% respiratory change. Chest CTA 02/01/19 13:42 IMPRESSION: 1. Small acute pulmonary thromboemboli within the right subsegmental lower lobe pulmonary arteries. 2. Congestive heart failure. 3. 2 sub solid right upper lobe pulmonary nodules. 4. Mediastinal adenopathy, likely reactive. Critical results were called by Dr. Shukri Allen MD to Eleanor Valladares MD on 02/01/2019 at 15:15. RECOMMENDATION: Fleischner Society guidelines for follow-up and management of incidentally detected subsolid pulmonary nodules: Multiple subsolid nodules > than or equal to 6 mm - CT at 3-6 months. Subsequent management based on the most suspicious nodule(s). Radiology 2017 http://pubs.rsna.org/doi/full/10.1148/radiol.[email or web address] D/ / Shukri Allen MD / Shukri Allen MD Interpreting Provider: Shukri Allen MD Consult Discharge Plan - Plan Referrals: Earl Roldan [Primary Care Provider] -
[2019-02-02] MEDS: Aspirin Enteric Coated 81 MG Tablet PO SCH (15:46)
[2019-02-03 05:15] LABS: Hematocrit 29.2 % (35.3-44.9); Hemoglobin 8.9 g/dL (11.5-15.4); Mean Corpuscular HGB Conc 30.5 g/dL (31.6-35.5); Mean Corpuscular Hemoglobin 31.2 pg (28.0-33.3); Mean Corpuscular Volume 102.5 fL (83.0-100.0); Platelet Count 264 K/mcL (140-400); Red Blood Count 2.85 M/mcL (3.82-4.97); Red Cell Distribution Width 19.9 % (11.5-14.5)
[2019-02-03 05:29] LABS: BUN/Creatinine Ratio 17 (6-26); Blood Urea Nitrogen 17 mg/dL (8-23); Calcium 8.9 mg/dL (8.6-10.3); Carbon Dioxide 19 mEq/L (23-29); Chloride 109 mEq/L (98-107); Glucose 134 mg/dL (70-105); Osmolality,Calculated 284 (280-300); Potassium 4.5 mEq/L (3.5-5.1); Sodium 135 mEq/L (136-145); eGFR For Non-African Americans 52 (> 60)
[2019-02-03] MEDS ORDERED: *HR* Metoprolol 5 MG/5 ML VIAL IVP ONE ×2 (07:46→12:28)
--- NOTE | 2019-02-03 07:47 | Cardiology Progress Note ---
Date of Encounter: 02/03/19 Time of Encounter: 07:45 Assessment and Plan (1) Atrial fibrillation with RVR Current Visit: Yes Status: Acute Per Cardiology: Atrial fibrillation with RVR in setting of UTI. Currently A. fib in the 100s, average heart rate the past 12 hours 113, atrial fibrillation. Systolic blood pressure 110s to 120s. Off Cardizem drip and on Toprol-XL 50 mg by mouth daily-- will increase Toprol-XL to 75 mg by mouth daily. Recommend continue titrating beta curly if needed for heart rate and as blood pressure allows. In regards to AC, has acute PE. Now on Xarelto. (2) Cardiomyopathy Current Visit: Yes Status: Acute Per Cardiology: TTE shows EF 30%. Chronicity unknown. CT showed CHF. Patient received Lasix yesterday. Possible history noted per daughter. Discussed and reviewed with Dr. Viola Bermudez, not a candidate for ischemic evaluation at this time in setting of acute PE. Continue low sodium diet, strict I&O and daily weight. Euvolemic on exam; laying flat in bed. On NC O2. Patient is DNR/CCA/DNI. Qualifiers: Cardiomyopathy type: unspecified Qualified Code(s): I42.9 - Cardiomyopathy, unspecified Discussion w patient/family: The assessment and plan as outlined above was discussed with the patient and/or family members who expressed understanding and agreement. All questions were answered. Thank you for involving us in the care of your patient. Please call with any questions. Subjective Principal diagnosis: Afib RVR Interval history: No family at bedside. Patient alert to person and cooperative today. She denies any chest pain, shortness of breath, palpitations. Objective Vital Signs, Last 4 Hours Temp Pulse Resp BP Pulse Ox 02/03/19 06:56 98.1 F 128 16 123/89 94 02/03/19 04:50 98.4 F 99 15 118/69 93 General: Conversant, No Apparent Distress HEENT: Atraumatic, Normocephaly, Mucus Membranes Moist Neck: No JVD, Normal carotid pulses Cardiac: No Murmur, Other (Irregularly irregular) Lungs: Normal Breath Sounds, No Wheeze, Rales, Rhonchi Neuro: Alert and responsive, No focal deficits noted Abdomen: Soft, Non-Tender Skin: No rashes noted on visualized skin Musculoskeletal: No Chest Wall Tenderness Extremities: No Clubbing, No Cyanosis, No Edema, Normal Pulses Results 02/03/19 04:32 02/03/19 04:32 Lab Results - Imaging and Cardiology Echo: report reviewed Consult Discharge Plan - Plan Referrals: Earl Roldan [Primary Care Provider] -
[2019-02-03] MEDS: cefTRIAXone 2,000 MG in Water for inj. (sterile) 20 ML 20 ML IVP SCH (09:08)
[2019-02-03] MEDS: Aspirin Enteric Coated 81 MG Tablet PO SCH (09:11)
[2019-02-03] MEDS: BUSPIRONE HCL 10 MG TABLET PO SCH ×3 (09:11→21:10)
[2019-02-03] MEDS: Metoprolol XL (24 HR) Succ 50 MG TAB.ER.24H PO SCH ×2 (09:11→21:09)
[2019-02-03] MEDS: *HR* Rivaroxaban 15 MG TABLET PO SCH ×2 (09:11→17:23)
[2019-02-03] MEDS: Pantoprazole 40 MG VIAL IVP SCH (09:12)
--- NOTE | 2019-02-03 12:33 | Internal Med Progress Note ---
Hospitalist Progress Note - Encounter Date of Encounter: 02/03/19 Time of Encounter: 12:29 - Subjective Interval History: Pt slept well last night she thinks, denies acute needs. Poor memory. Bedside RN says patient without needs at this moment other than her HR remains slightly elevated. - Exam Vitals: Temp Pulse Resp BP Pulse Ox 97.8 F 117 16 125/84 94 02/03/19 11:12 02/03/19 11:12 02/03/19 11:12 02/03/19 11:12 02/03/19 11:12 Exam: General: NAD, good eye contact, well appearing, elderly Thoracic: Normal breath sounds b/l, no wheezing or crackles Cardio: Normal S1 and S2, irreg irreg rhythm, regular rate in 70s on my exam Abdomen: Soft, nontender Extremities: Warm, well perfused. DP pulses 2+ b/l. No edema. Skin: Intact. No rashes, bruises, or ulcers Neuro: Sleeping but awakens easily, oriented to person and place. Speech fluent. Poor memory. Hard of hearing. - Summary of Assessment and Plan Summary of Assessment and Plan: Jessica Baldwin is an 88 F w hx dementia, CAD/ICM, HFrEF 30%, A-Fib, who p/w tachycar david, found to have HR 120s, irregular rhythm, elevated D-dimer, CTPE showing subsegmental filling defect, and dirty UA, concerning for acute PE and UTI causing A-Fib RVR. 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: euvolemic on exam - Diuresis: none - continue new toprol as above - continue new lisinopril 2.5 - consider initiation of low dose helga 12.5 prior to d/c - home ASA - pt DNR and therefore not candidate for ICD Prolonged QT: resolved, monitor K and Mg HTN: controlled, meds as above CAD: ASA as above, not on statin Dementia: home memantine, risperdal Depression: home celexa PPx: Xarelto FEN: regular, no MIVF Lines: PIV Consults: Cardio Code: DNRCC-A DNI Dispo: patient requires inpatient eval and management at this time, anticipate 1-2 days, will eventually return to [facility] Internal Medicine: Result - Labs CBC & Chem 7: 02/03/19 04:32 02/03/19 04:32 Labs: Short CBC 02/03/19 Range/Units 04:32 WBC 5.6 (4.3-11.1) K/mcL Hgb 8.9 L (11.5-15.4) g/dL Hct 29.2 L (35.3-44.9) % Plt Count 264 (140-400) K/mcL BMP 02/03/19 04:32 Sodium 135 L Potassium 4.5 Chloride 109 H Carbon Dioxide 19 L BUN 17 Creatinine 1.01 Glucose 134 H Calcium 8.9 - ABG Interpretation ABG results: PT/INR, D-dimer PT 12.5 Seconds (9.4-12.1) H 02/01/19 15:38 2764 ng/mLFEU (0-500) H 02/01/19 08:31 Consult Discharge Plan - Plan Referrals: Earl Roldan [Primary Care Provider] -
[2019-02-04] MEDS: Metoprolol XL (24 HR) Succ 50 MG TAB.ER.24H PO SCH ×3 (06:42→19:40)
[2019-02-04] MEDS ORDERED: *HR* Metoprolol 5 MG/5 ML VIAL IVP ONE (07:41)
[2019-02-04] MEDS: *HR* Rivaroxaban 15 MG TABLET PO SCH ×2 (08:46→17:08)
[2019-02-04] MEDS: Pantoprazole 40 MG VIAL IVP SCH (08:46)
[2019-02-04] MEDS: BUSPIRONE HCL 10 MG TABLET PO SCH ×3 (08:46→19:40)
[2019-02-04] MEDS: Aspirin Enteric Coated 81 MG Tablet PO SCH (08:46)
[2019-02-04] MEDS ORDERED: Metoprolol XL (24 HR) Succ 25 MG TAB.ER.24H PO ONE (10:01)
--- NOTE | 2019-02-04 11:15 | Cardiology Progress Note ---
Date of Encounter: 02/04/19 Time of Encounter: 11:07 Assessment and Plan (1) Atrial fibrillation with RVR Current Visit: Yes Status: Acute Per Cardiology: Atrial fibrillation with RVR in setting of UTI and PE. Currently A. fib HR 80s-110s at bedside, average heart rate the past 12 hours 106, atrial fibrillation. Systolic blood pressure 110s to 120s. On Toprol XL 50mg BID. Will increase to 75mg BID. If unable to rate control on BB will consider amiodarone. In regards to AC, has acute PE. Now on Xarelto. Continue to follow. (2) Cardiomyopathy Current Visit: Yes Status: Acute Per Cardiology: TTE shows EF 30%. Chronicity unknown. CT showed CHF. Patient received Lasix. Possible history noted per daughter. Discussed and reviewed with Dr. Viola Bermudez, not a candidate for ischemic evaluation at this time in setting of acute PE. Continue low sodium diet, strict I&O and daily weight. Euvolemic on exam; laying flat in bed. On NC O2. Patient is DNR/CCA/DNI. Continue BB and ACEi. Qualifiers: Cardiomyopathy type: unspecified Qualified Code(s): I42.9 - Cardiomyopathy, unspecified Discussion w patient/family: The assessment and plan as outlined above was discussed with the patient and/or family members who expressed understanding and agreement. All questions were answered. Thank you for involving us in the care of your patient. Please call with any questions. I will discuss all the above with Dr. Ospina and make changes as necessary. Subjective Principal diagnosis: Afib RVR Interval history: Pt denies acute complaints this AM. Objective Vital Signs, Last 4 Hours Temp Pulse Resp BP Pulse Ox 02/04/19 07:20 98.0 F 117 18 113/69 94 Vital Signs Temp Pulse Resp BP Pulse Ox 02/04/19 07:20 98.0 F 117 18 113/69 94 02/04/19 03:49 98.2 F 90 17 110/71 79 02/03/19 21:35 93 02/03/19 19:52 97.9 F 101 17 113/91 93 02/03/19 14:48 97.5 F L 112 14 97/76 94 02/03/19 11:12 97.8 F 117 16 125/84 94 Intake and Output 02/03/19 02/04/1919 23:59 07:59 15:59 Intake Total 320 / 620 0 / 360 360 / 360 Output Total 0 / 0 Balance 320 / 620 0 / 360 360 / 360 Intake: IV Fluids 320 / 320 Cardizem 50 MG In 0.9 % Sodium 50 / 50 Chloride 40 ML @ 5 MG/HR 5 mls/ hr IVC CONT [facility] Rx#:[id number] Heparin 25,000 UNIT/250 ML D5W 250 / 250 25,000 unit In 250 ml @ 14 UNIT /KG/HR 8.582 mls/hr IVC .Q24H [facility] Rx#:[id number] Rocephin 2,000 MG In Water for / inj. (sterile) 20 ML @ 600 mls/ hr IVP Q24H [facility] Rx#:[id number] Oral 0 / 360 360 / 360 Output: Urine 0 / 0 Other: Meal Breakfast Percent of Meal Consumed 100% Stool Size Small Stool Consistency soft formed Stool Characteristics Pasty Stool Color Brown # Voids 1 # Bowel Movements 1 Weight 57.3 kg Patient Weight 02/04/19 23:59 Weight 57.3 kg General: Conversant, No Apparent Distress HEENT: Atraumatic, Normocephaly, Mucus Membranes Moist Neck: No JVD, Normal carotid pulses Cardiac: Other (irregularly irregular) Lungs: Other (diminished) Neuro: Alert and responsive, No focal deficits noted Abdomen: Soft, Non-Tender Skin: No rashes noted on visualized skin Musculoskeletal: No Chest Wall Tenderness Extremities: No Clubbing, No Cyanosis, No Edema, Normal Pulses Results 02/03/19 04:32 02/03/19 04:32 Active Medications Aspirin (Aspirin Ec) 81 mg PO DAILY [facility] Stop: 08/04/19 15:31 Last Admin: 02/04/19 08:46 Dose: 81 mg Documented by: Bisacodyl (Dulcolax) 10 mg RC DAILY PRN PRN Reason: CONSTIPATION Stop: 08/03/19 11:02 Buspirone HCl (Buspar Hcl) 10 mg PO TID [facility] Stop: 08/04/19 11:01 Last Admin: 02/04/19 08:46 Dose: 10 mg Documented by: Citalopram Hydrobromide (Celexa) 10 mg PO DAILY [facility] Stop: 08/04/19 09:01 Last Admin: 02/04/19 08:46 Dose: 10 mg Documented by: Hydroxyzine Pamoate (Hydroxyzine Pamoate) 25 mg PO TID PRN PRN Reason: agitation, anxiety, or itching Stop: 08/04/19 11:13 Last Admin: 02/02/19 11:46 Dose: 25 mg Documented by: Lisinopril (Zestril) 2.5 mg PO DAILY [facility]; Protocol Stop: 08/05/19 09:01 Last Admin: 02/04/19 08:47 Dose: 2.5 mg Documented by: Memantine (Namenda) 5 mg PO BID [facility] Stop: 08/03/19 21:01 Last Admin: 02/04/19 08:46 Dose: 5 mg Documented by: Metoprolol Succinate (Toprol Xl) 75 mg PO BID [facility] Stop: 08/06/19 21:01 Naloxone HCl (Narcan) 0.4 mg IVP Q2MPRN PRN PRN Reason: SEE COMMENTS Stop: 08/03/19 10:29 Pantoprazole Sodium (Protonix) 40 mg IVP DAILY [facility] Stop: 08/03/19 11:01 Last Admin: 02/04/19 08:46 Dose: 40 mg Documented by: Rivaroxaban (Xarelto) 15 mg PO BIDWM [facility] Stop: 08/04/19 11:16 Last Admin: 02/04/19 08:46 Dose: 15 mg Documented by: - Imaging and Cardiology Echo: report reviewed - EKG Interpretation EKG results cardiology: other (12 hr tele AVG HR 106, A-Fib) Consult Discharge Plan - Plan Referrals: Earl Roldan [Primary Care Provider] -
--- NOTE | 2019-02-04 13:56 | Electrocardiograph Report ---
[employer] Test Date: 2019-02-01 Pat Name: Jessica Baldwin Department: EXAM21 Room: 2NE18 Gender: F Inventory Accountant: : 1930 Requested By: Severo Damico Order Number: [id number] Reading MD: Douglas Grady Measurements Intervals [place] Rate: 127 P: OK: QRS: 233 QRSD: 98 T: 95 QT: 345 QTc: 502 Interpretive Statements Atrial fibrillation Probable anterolateral infarct, age indeterm Prolonged QT interval Electronically Signed On 02-04-2019 13:55:09 EDT by Douglas Grady
--- NOTE | 2019-02-04 15:30 | Palliative - Consult Note ---
Date of Encounter: 02/04/19 Time of Encounter: 15:25 - Assessment and Plan (1) Cardiomyopathy Current Visit: Yes Status: Acute Assessment and plan: Cardiology following, EF this admission 30%. Qualifiers: Cardiomyopathy type: unspecified Qualified Code(s): I42.9 - Cardiomyopathy, unspecified (2) Dementia Current Visit: Yes Status: Acute Assessment and plan: Patient pleasantly confused, however can speak in full sentences and follow one step commands. Qualifiers: Dementia type: unspecified type Dementia behavioral disturbance: without behavioral disturbance Qualified Code(s): F03.90 - Unspecified dementia without behavioral disturbance (3) Goals of care, counseling/discussion Current Visit: Yes Status: Acute Assessment and plan: Discussed with patient's Yrn (POA) , and son Wm (1st alternate on A). Patient is up in chair and pleasantly confused, but cannot participate in discussion r/t her mental status. Wm asked about options with her care moving forward. She has been at [facility] the last several months, as it became too difficult to care for her at home with her progressing dementia. Family has not been pleased with the response of [facility] staff with her medical conditions, and feel they "wait too long", prior to addressing a medical concern. They asked about eligibility for hospice and what that care would entail. Discussed that her EF has actually improved from 20% to 30%, although this is still greatly decreased, but that hospice will look at 20% for enrollment for cardiomyopathy. Also, this is her first hospitalization in the last several months, although she has had a couple of UTI's treated at [facility]. She currently only meets 7A fast criteria for dementia, and would need to be at 7C for hospice. Also discussed with them that the philosophy would be to deliver care to her in either ECF or home setting, and typically, patients to not return to the hospital for aggressive care. Based on their goals of care and patient's current status, she is not appropriate for hospice YET, but will likely be in the near future. Son and aware that if she further declines at [facility], and they determine they desire comfort care only, [facility] staff could ask for hospice referral and she could be transitioned to hospice in that setting. They are already private paying for her stay. Also discussed that if there were enough family support at home, they could bring her home, however, hospice visits would be intermittent and family would still need to provide 24/7 care. Family verbalized understanding. I will f/u again tomorrow to see if they have further questions. Total time for patient evaluation, coordination with family and care approx 45 min. Thank you for consult. (4) Palliative care encounter Current Visit: Yes Status: Acute (5) Atrial fibrillation with RVR Current Visit: Yes Status: Acute Palliative-CN HPI - Data of Consult Requesting Physician: Robbin Huertas Primary Care Provider: Earl Roldan - Consult Narrative History of present illness: Ms. Baldwin is a 88 year old female who resides at [facility] presented with tachycardia. Patient has dementia and unable to provide history, and son are at bedside. They state that she had been treated recently for UTI, and was again demonstrating symptoms with increased confusion. States that they had been asking staff there at [facility] to test urine again, but was taking a "long amount of time to get done". She was found to have afib/rvr, and imaging also demonstrated small pulmonary thromboembolus. She has been treated with atb for UTI, and anticoagulation. Cardiology has followed closely. 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 Upon my visit, patient is up in chair, awake and alert, but confused. and son are at bedside. She is unable to answer questions, but can follow simple commands. Asking me to "get her clothes on". Denies pain or discomfort. FAmily states utilizes walker at [facility], but states she has become weaker and not sure if she will be able to ambulate upon returning. Family has inquired about when patient would be appropriate for hospice care, and palliative was consulted to evaluate pt and discuss. CC: Robbin Huertas - Time Spent with Patient Time: Total time spent is greater than 50% in coordination of care (as documented) at patient's floor/unit and/or counseling patient: Past Med Surg Social Fam HX - Past Medical History Medical history: arthritis, coronary artery disease, dementia, hypertension, myocardial infarction, osteoporosis, renal disease, other Additional medical history: Alzheimers. Atherosclerosis. Diverticulosis. Insomnia Psychiatric history: anxiety - Past Surgical History Surgical History: angioplasty/stent - Social History Smoking Status: Never smoker Smokeless Tobacco Status: No Alcohol use: none Drug use: none - Family History Mother Living Status: Hx Family Respiratory Disorders: Yes Medications and Allergies RisperiDONE [Risperdal] 0.5 mg PO Q48H 06/30/17 [History] amLODIPine [Norvasc] 5 mg PO DAILY 06/30/17 [History] Acetaminophen [Tylenol] 650 mg PO DAILY 02/01/19 [History] Bisacodyl [Gentle Laxative] 10 mg RC DAILY PRN 02/01/19 [History] Buspirone HCl [Buspar] 5 mg PO BID 02/01/19 [History] Citalopram Hydrobromide [Citalopram HBr] 10 mg PO DAILY 02/01/19 [History] Cranberry Fruit [Cranberry] 450 mg PO DAILY 02/01/19 [History] Memantine HCl 5 mg PO BID 02/01/19 [History] Polyethylene Glycol 3350 [MiraLAX] 17 gm PO PRN PRN 02/01/19 [History] Tramadol HCl [Ultram] 50 mg PO Q8H PRN 02/01/19 [History] Allergy/AdvReac Type Severity Reaction Status Date / Time Penicillins [PCN] Allergy Rash Verified 06/30/17 13:12 Sulfa (Sulfonamide Allergy Hives Verified 02/01/19 12:37 Antibiotics) ROS unobtainable: due to mental status Palliative Care-Exam - Constitutional Vitals: Temp Pulse Resp BP Pulse Ox 98.0 F 104 17 107/80 94 02/04/19 07:20 02/04/19 12:00 02/04/19 12:00 02/04/19 12:00 02/04/19 12:00 General appearance: Present: cooperative, no acute distress - Head Head Exam: Present: normal inspection, normocephalic - Respiratory Respiratory exam: Present: CTAB - Cardiovascular Cardiovascular exam: Present: irregular rhythm, tachycardia - GI/Abdominal Exam GI/Abdominal exam: Present: normal bowel sounds, soft - Extremities Exam Extremities exam: Present: normal capillary refill, normal inspection - Neurological Exam Neurological exam: Present: alert Additional comments: Oriented to name only. Can follow very simple one step commands. Pleasantly confused. Can speak full sentence, but inappropriate most times. - Skin Skin exam: Present: dry, pallor, warm Internal Medicine - CN: Reslt - Labs CBC & Chem 7: 02/03/19 04:32 02/03/19 04:32 - ABG Interpretation ABG results: PT/INR, D-dimer PT 12.5 Seconds (9.4-12.1) H 02/01/19 15:38 2764 ng/mLFEU (0-500) H 02/01/19 08:31 Consult Discharge Plan - Plan Referrals: Earl Roldan [Primary Care Provider] - Palliative Quality Palliative Quality: Screen for Code Status: Yes, Screen for Goals of Care: Yes, Screen for Pain: Yes, If Pain Regimen Started, Initiate Bowel Regimen: NA, Screen for Nausea/Vomitting: Yes Code Status: 02/01/19 10:28 Resuscitation Status: Active [RES] Routine Comment: Resuscitation Status: [id number]
--- NOTE | 2019-02-04 16:10 | Internal Med Progress Note ---
Hospitalist Progress Note - Encounter Date of Encounter: 02/04/19 Time of Encounter: 16:08 - Subjective Interval History: Pt alone this AM, denies needs or complaints. Bedside RN is administering IVP metoprolol to help slow her heart rate. Pt does not feel palpitations and is patiently waiting to eat her breakfast. Denies CP, SOB, leg swelling, N/V. Not ified later in day that pt's family present and asking for palliative consultation to discuss end of life care. - Exam Vitals: Temp Pulse Resp BP Pulse Ox 98.0 F 94 17 114/83 96 02/04/19 07:20 02/04/19 15:49 02/04/19 15:49 02/04/19 15:49 02/04/19 15:49 Exam: General: NAD, good eye contact, well appearing, elderly, sitting in bedside chair Thoracic: Normal breath sounds b/l, no wheezing or crackles Cardio: Normal S1 and S2, irreg irreg rhythm, tachycardic today in 100-120s on my exam Abdomen: Soft, nontender Extremities: Warm, well perfused. DP pulses 2+ b/l. No edema. Skin: Intact. No rashes, bruises, or ulcers Neuro: awake, oriented to person and place. Speech fluent. Poor memory. Hard of hearing. - Summary of Assessment and Plan Summary of Assessment and Plan: Jessica Baldwin is an 88 F w hx dementia, CAD/ICM, HFrEF 30%, A-Fib, who p/w tachycardia, found to have HR 120s, irregular rhythm, elevated D-dimer, CTPE showing subsegmental filling defect, and dirty UA, concerning for acute PE and UTI causing A-Fib RVR. Acute PE: R subsegmental lower lobe branches seen on CTPE - xarelto 15 bid x21d then 20 daily to complete 3 months A-Fib RVR: rate poorly controlled now off dilt but dilt is contraindicated in HFrEF. 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: euvolemic on exam - Diuresis: none - continue new toprol as above - continue new lisinopril 2.5 - consider initiation of low dose helga 12.5 prior to d/c - home ASA - pt DNR and therefore not candidate for ICD Prolonged QT: resolved, monitor K and Mg HTN: controlled, meds as above CAD: ASA as above, not on statin Dementia: home memantine, risperdal Depression: home celexa PPx: Xarelto FEN: regular, no MIVF Lines: PIV Consults: Cardio, Palliative Code: DNRCC-A DNI, family requesting palliative consultation and this has been arranged Dispo: patient requires inpatient eval and management at this time, anticipate 1-2 days, will eventually return to [facility] Internal Medicine: Result - Labs CBC & Chem 7: 02/03/19 04:32 02/03/19 04:32 - ABG Interpretation ABG results: PT/INR, D-dimer PT 12.5 Seconds (9.4-12.1) H 02/01/19 15:38 2764 ng/mLFEU (0-500) H 02/01/19 08:31 Consult Discharge Plan - Plan Referrals: Earl Roldan [Primary Care Provider] -
[2019-02-05 07:41] VITALS: BP 118/96
--- NOTE | 2019-02-05 08:25 | Discharge Summary ---
- NOTES TO OUTPATIENT PROVIDER Notes to Outpatient Provider: New A-Fib RVR on metoprolol, new acute PE on Xarelto x3 months Date of Encounter: 02/05/19 Time of Encounter: 08:24 Hospital course: Dear Doctors, I recently had the opportunity to care for this patient during their recent hospital stay at [facility]. Jessica Baldwin is an 88 F w hx dementia, CAD/ICM, HFrEF 30%, A-Fib now on AC, who presented at time of admission from [facility] with tachycardia. In the ED, she was found to have HR 120s, irregular rhythm, and elevated D-dimer, for which CTPE obtained showing subsegmental filling defect. She also had dirty UA. Admitted for acute PE and UTI causing A-Fib RVR. In the hospital: For UTI, pt treated w rocephin iv for 3 days, and urine culture without growth. For her acute PE, she was started on Xarelto. For her A-Fib, rate was difficult to control, and metoprolol was gradually uptitrated to 100 bid prior to average HR lowering to <110. Should RVR recur, cardiology suggested to try rhythm control strategy with amiodarone. Dx: UTI, Acute PE, A-Fib RVR, chronic HFrEF 30% 2/2 ICM Pertinent tests/consults: Cardio, TTE Follow up: per SNF, PCP and Cardio 1-2 weeks Tests pending: none Med changes: - new toprol 100 bid - new lisinopril 2.5 daily - new Xarelto 15 bid x21d then 20 daily x3m Mental status: awake, oriented to person and place Code status: DNRCC-A DNI Time spent on discharge: 35 minutes It has been my pleasure participating in this patient's care. Please contact me with any questions or concerns regarding their hospital stay. Sincerely, Robbin Huertas MD - Discharge Medications Prescriptions: New Lisinopril 2.5 mg PO DAILY #30 tablet Metoprolol Succinate 100 mg PO BID #60 tab.er.24h Rivaroxaban [Xarelto] 15 mg PO BIDWM #38 tablet Rivaroxaban [Xarelto] 20 mg PO DAILY #30 tablet Continued RisperiDONE [Risperdal] 0.5 mg PO Q48H amLODIPine [Norvasc] 5 mg PO DAILY Polyethylene Glycol 3350 [MiraLAX] 17 gm PO PRN PRN PRN Reason: Constipation Cranberry Fruit [Cranberry] 450 mg PO DAILY Tramadol HCl [Ultram] 50 mg PO Q8H PRN PRN Reason: Pain Citalopram Hydrobromide [Citalopram HBr] 10 mg PO DAILY Buspirone HCl [Buspar] 5 mg PO BID Bisacodyl [Gentle Laxative] 10 mg RC DAILY PRN PRN Reason: Constipation Memantine HCl 5 mg PO BID Acetaminophen [Tylenol] 650 mg PO DAILY Home Medications: RisperiDONE [Risperdal] 0.5 mg PO Q48H 06/30/17 [History] amLODIPine [Norvasc] 5 mg PO DAILY 06/30/17 [History] Acetaminophen [Tylenol] 650 mg PO DAILY 02/01/19 [History] Bisacodyl [Gentle Laxative] 10 mg RC DAILY PRN 02/01/19 [History] Buspirone HCl [Buspar] 5 mg PO BID 02/01/19 [History] Citalopram Hydrobromide [Citalopram HBr] 10 mg PO DAILY 02/01/19 [History] Cranberry Fruit [Cranberry] 450 mg PO DAILY 02/01/19 [History] Memantine HCl 5 mg PO BID 02/01/19 [History] Polyethylene Glycol 3350 [MiraLAX] 17 gm PO PRN PRN 02/01/19 [History] Tramadol HCl [Ultram] 50 mg PO Q8H PRN 02/01/19 [History] Lisinopril 2.5 mg PO DAILY #30 tablet 02/05/19 [Rx] Metoprolol Succinate 100 mg PO BID #60 tab.er.24h 02/05/19 [Rx] Rivaroxaban [Xarelto] 15 mg PO BIDWM #38 tablet 02/05/19 [Rx] Rivaroxaban [Xarelto] 20 mg PO DAILY #30 tablet 02/05/19 [Rx] Allergies/Adverse Reactions: Allergy/AdvReac Type Severity Reaction Status Date / Time Penicillins [PCN] Allergy Rash Verified 06/30/17 13:12 Sulfa (Sulfonamide Allergy Hives Verified 02/01/19 12:37 Antibiotics) Date of admission: 02/02/19 10:55 Primary care physician: Earl Roldan Consults: 02/01/19 10:22 Consult to Cardiology [CONS] Stat Comment: Consulting Provider: Cardiology Liv Reason for Consult: new Afib with RVR Time Notified: 10:23 Call Completed: Yes 02/01/19 10:59 Consult to Case Management [CONS] Routine Comment: Consult to Physical Therapy [CONS] Routine Comment: Evaluate, develop and implement POC Reason for Consult: dispostion Does patient have active BEDREST order?: No Is patient medically & hemodynamically stable?: Yes Patient assessed for mobility or mobilized this visit?: Yes 02/04/19 13:09 Consult to Palliative Care [CONS] Routine Comment: Consulting Provider: Palliative Care Liv Reason for Consult: ? if appropriate for hospice, per family request Call Completed: Yes - Constitutional Vitals: Temp Pulse Resp BP Pulse Ox 97.6 F 113 17 118/96 94 02/05/19 04:34 02/05/19 07:38 02/05/19 07:38 02/05/19 07:38 02/05/19 07:38 Exam: General: NAD, good eye contact, well appearing, elderly, sitting in bedside chair Thoracic: Normal breath sounds b/l, no wheezing or crackles Cardio: Normal S1 and S2, irreg irreg rhythm, tachycardic 90-100s Abdomen: Soft, nontender Extremities: Warm, well perfused. DP pulses 2+ b/l. No edema. Skin: Intact. No rashes, bruises, or ulcers Neuro: awake, oriented to person. Speech fluent. Poor memory. Hard of hearing. - Patient Status Disposition: Transfer SNF Condition: Fair Overall status at discharge: patient is progressing back to baseline - Discharge Instructions Instructions: Metoprolol (By mouth), Lisinopril (By mouth), Rivaroxaban (By mouth), Atrial Fibrillation (DC), Pacemaker (DC), Urinary Tract Infection in Women (DC), Chronic Hypertension (DC), Anemia (GEN) Follow Up With: Earl Roldan [Primary Care Provider] - Forms: ED Satisfaction Letter - Diet and Activity Activity: resume usual activities as tolerated Diet: advance to your usual diet
[2019-02-05 08:26] LABS: Hematocrit 30.5 % (35.3-44.9); Hemoglobin 9.1 g/dL (11.5-15.4); Mean Corpuscular HGB Conc 29.8 g/dL (31.6-35.5); Mean Corpuscular Hemoglobin 31.1 pg (28.0-33.3); Mean Corpuscular Volume 104.1 fL (83.0-100.0); Mean Platelet Volume 11.6 fL (9.4-12.4); Platelet Count 324 K/mcL (140-400); Red Blood Count 2.93 M/mcL (3.82-4.97); Red Cell Distribution Width 19.9 % (11.5-14.5)
[2019-02-05 08:45] LABS: BUN/Creatinine Ratio 25 (6-26); Blood Urea Nitrogen 25 mg/dL (8-23); Calcium 8.6 mg/dL (8.6-10.3); Carbon Dioxide 20 mEq/L (23-29); Chloride 112 mEq/L (98-107); Glucose 107 mg/dL (70-105); Osmolality,Calculated 291 (280-300); Potassium 4.1 mEq/L (3.5-5.1); Sodium 138 mEq/L (136-145); eGFR For Non-African Americans 53 (> 60)
[2019-02-05] MEDS: BUSPIRONE HCL 10 MG TABLET PO SCH (08:45)
[2019-02-05] MEDS: Aspirin Enteric Coated 81 MG Tablet PO SCH (08:45)
[2019-02-05] MEDS: Metoprolol XL (24 HR) Succ 50 MG TAB.ER.24H PO SCH (08:45)
[2019-02-05] MEDS: *HR* Rivaroxaban 15 MG TABLET PO SCH (08:45)
[2019-02-05] MEDS: Pantoprazole 40 MG VIAL IVP SCH (08:46)
--- NOTE | 2019-02-05 09:47 | Event Note ---
Date of Encounter: 02/05/19 Time of Encounter: 09:00 Patient sleeping - awakens easily. Pleasantly confused, no complaints. No family present. I spoke with family yesterday and provided my contact information to them if they have any further questions, they will contact me. Anticipate her return to ECF soon. Palliative will sign off. Please call if needed.
[2019-02-05] MEDS ORDERED: Metoprolol XL (24 HR) Succ 25 MG TAB.ER.24H PO ONE (11:19)
--- NOTE | 2019-02-05 11:22 | Cardiology Progress Note ---
Date of Encounter: 02/05/19 Time of Encounter: 11:20 Assessment and Plan (1) Atrial fibrillation with RVR Current Visit: Yes Status: Acute Per Cardiology: Atrial fibrillation with RVR in setting of UTI and PE. Currently A. fib HR 80s-low 100s at bedside, AVG HR the past 12 hours 102, atrial fibrillation. Systolic blood pressure 110s to 120s. On Toprol XL 75mg BID. Will increase to 100mg BID. In regards to AC, has acute PE. Now on Xarelto. Cardiology signing off. Reoconsult PRN. (2) Cardiomyopathy Current Visit: Yes Status: Acute Per Cardiology: TTE shows EF 30%. Chronicity unknown. CT showed CHF. Patient received Lasix. Possible history noted per daughter. Discussed and reviewed with Dr. Viola Bermudez, not a candidate for ischemic evaluation at this time in setting of acute PE. Continue low sodium diet, strict I&O and daily weight. Euvolemic on exam; laying flat in bed. On NC O2. Patient is DNR/CCA/DNI. Continue BB and ACEi. Qualifiers: Cardiomyopathy type: unspecified Qualified Code(s): I42.9 - Cardiomyopathy, unspecified Discussion w patient/family: The assessment and plan as outlined above was discussed with the patient and/or family members who expressed understanding and agreement. All questions were answered. Thank you for involving us in the care of your patient. Please call with any questions. I will discuss all the above with Dr. Ospina and make changes as necessary. Subjective Principal diagnosis: Afib RVR Interval history: Pt denies acute complaints this AM. Objective Vital Signs, Last 4 Hours Pulse Resp BP Pulse Ox 02/05/19 07:38 113 17 118/96 94 Vital Signs Temp Pulse Resp BP Pulse Ox 02/05/19 07:38 113 17 118/96 94 02/05/19 04:34 97.6 F 97 14 123/82 91 02/04/19 19:22 97.6 F 92 16 114/80 95 02/04/19 15:49 94 17 114/83 96 02/04/19 12:00 104 17 107/80 94 Intake and Output 02/04/19 02/05/19 02/05/19 23:59 07:59 15:59 Intake Total 60 / 420 30 / 30 Output Total 100 / 100 Balance -40 / 320 30 / 30 Intake: Oral 60 / 420 Output: Urine 100 / 100 Other: Stool Size Smear Stool Consistency loose Weight 57.8 kg Patient Weight 02/05/19 23:59 Weight 57.8 kg General: Conversant, No Apparent Distress HEENT: Atraumatic, Normocephaly, Mucus Membranes Moist Neck: No JVD, Normal carotid pulses Cardiac: Other (irregularly irregular) Lungs: Normal Breath Sounds, No Wheeze, Rales, Rhonchi Neuro: Other (confused) Abdomen: Soft, Non-Tender Skin: No rashes noted on visualized skin Musculoskeletal: No Chest Wall Tenderness Extremities: No Clubbing, No Cyanosis, No Edema, Normal Pulses Results 02/05/19 08:04 02/05/19 08:04 Lab Results 02/05/19 02/05/19 08:04 08:04 WBC 6.6 Hgb 9.1 L Hct 30.5 L Plt Count 324 Sodium 138 Potassium 4.1 Chloride 112 H Carbon Dioxide 20 L BUN 25 H Creatinine 0.99 Glucose 107 H Calcium 8.6 Magnesium 2.0 Short CBC 02/05/19 Range/Units 08:04 WBC 6.6 (4.3-11.1) K/mcL Hgb 9.1 L (11.5-15.4) g/dL Hct 30.5 L (35.3-44.9) % Plt Count 324 (140-400) K/mcL BMP 02/05/19 Range/Units 08:04 Sodium 138 (136-145) mEq/L Potassium 4.1 (3.5-5.1) mEq/L Chloride 112 H (98-107) mEq/L Carbon Dioxide 20 L (23-29) mEq/L BUN 25 H (8-23) mg/dL Creatinine 0.99 (0.60-1.20) mg/dL Glucose 107 H (70-105) mg/dL Calcium 8.6 (8.6-10.3) mg/dL Active Medications Aspirin (Aspirin Ec) 81 mg PO DAILY [facility] Stop: 08/04/19 15:31 Last Admin: 02/05/19 08:45 Dose: 81 mg Documented by: Bisacodyl (Dulcolax) 10 mg RC DAILY PRN PRN Reason: CONSTIPATION Stop: 08/03/19 11:02 Buspirone HCl (Buspar Hcl) 10 mg PO TID [facility] Stop: 08/04/19 11:01 Last Admin: 02/05/19 08:45 Dose: 10 mg Documented by: Citalopram Hydrobromide (Celexa) 10 mg PO DAILY [facility] Stop: 08/04/19 09:01 Last Admin: 02/05/19 08:45 Dose: 10 mg Documented by: Hydroxyzine Pamoate (Hydroxyzine Pamoate) 25 mg PO TID PRN PRN Reason: agitation, anxiety, or itching Stop: 08/04/19 11:13 Last Admin: 02/02/19 11:46 Dose: 25 mg Documented by: Lisinopril (Zestril) 2.5 mg PO DAILY [facility]; Protocol Stop: 08/05/19 09:01 Last Admin: 02/05/19 08:45 Dose: 2.5 mg Documented by: Memantine (Namenda) 5 mg PO BID [facility] Stop: 08/03/19 21:01 Last Admin: 02/05/19 08:45 Dose: 5 mg Documented by: Metoprolol Succinate (Toprol Xl) 25 mg PO ONCE ONE Stop: 02/05/19 11:20 Metoprolol Succinate (Toprol Xl) 100 mg PO BID [facility] Stop: 08/07/19 21:01 Naloxone HCl (Narcan) 0.4 mg IVP Q2MPRN PRN PRN Reason: SEE COMMENTS Stop: 08/03/19 10:29 Pantoprazole Sodium (Protonix) 40 mg IVP DAILY [facility] Stop: 08/03/19 11:01 Last Admin: 02/05/19 08:46 Dose: 40 mg Documented by: Rivaroxaban (Xarelto) 15 mg PO BIDWM [facility] Stop: 08/04/19 11:16 Last Admin: 02/05/19 08:45 Dose: 15 mg Documented by: - Imaging and Cardiology Echo: report reviewed - EKG Interpretation EKG results cardiology: other (12 hr tele AVG HR 102, A-Fib) Consult Discharge Plan - Plan Referrals: Earl Roldan [Primary Care Provider] -
--- NOTE | 2019-02-05 11:49 | Physician Discharge Referral ---
ExtendedCare Referral Info Transfer To: SNF Provider in Charge after Transfer: PCP Institutional Level of Care: Skilled - Transfer Medications Prescriptions: Lisinopril 2.5 mg PO DAILY #30 tablet Metoprolol Succinate 100 mg PO BID #60 tab.er.24h Rivaroxaban [Xarelto] 15 mg PO BIDWM #38 tablet Rivaroxaban [Xarelto] 20 mg PO DAILY #30 tablet Home Medications: RisperiDONE [Risperdal] 0.5 mg PO Q48H 06/30/17 [History] amLODIPine [Norvasc] 5 mg PO DAILY 06/30/17 [History] Acetaminophen [Tylenol] 650 mg PO DAILY 02/01/19 [History] Bisacodyl [Gentle Laxative] 10 mg RC DAILY PRN 02/01/19 [History] Buspirone HCl [Buspar] 5 mg PO BID 02/01/19 [History] Citalopram Hydrobromide [Citalopram HBr] 10 mg PO DAILY 02/01/19 [History] Cranberry Fruit [Cranberry] 450 mg PO DAILY 02/01/19 [History] Memantine HCl 5 mg PO BID 02/01/19 [History] Polyethylene Glycol 3350 [MiraLAX] 17 gm PO PRN PRN 02/01/19 [History] Tramadol HCl [Ultram] 50 mg PO Q8H PRN 02/01/19 [History] Lisinopril 2.5 mg PO DAILY #30 tablet 02/05/19 [Rx] Metoprolol Succinate 100 mg PO BID #60 tab.er.24h 02/05/19 [Rx] Rivaroxaban [Xarelto] 15 mg PO BIDWM #38 tablet 02/05/19 [Rx] Rivaroxaban [Xarelto] 20 mg PO DAILY #30 tablet 02/05/19 [Rx] Allergies/Adverse Reactions: Allergy/AdvReac Type Severity Reaction Status Date / Time Penicillins [PCN] Allergy Rash Verified 06/30/17 13:12 Sulfa (Sulfonamide Allergy Hives Verified 02/01/19 12:37 Antibiotics) - Respiratory Orders Smoking Cessation: Smoking cessation has been advised. For more information, call the [place] Tobacco Quit Line at 2-624-KSJO-NOW. - Ancillary Orders May use pressure relief devices daily prn, May go on RYNE w/family/respon republican w/meds at nurse discretion PRN, May have alcoholic beverages, May consult with Dentist, Marine Designer, Industrial Economist PRN - Advance Directives Code Status: DNR-Arrest/Don't Intubate - Rehabiliation Orders Rehab Orders: Sternal Precautions, ROM Exercises, Evaluation for Physical Therapy, Evaluation for Occupational Therapy - Diet Orders Regular CERTIFICATION: I certify that the transfer of the above named patient to an Extended Care Facility is necessary for the continuing treatment of the diagnosis listed. The above information is true and accurate reflection of patient's current condition. Confidential - Redisclosure prohibited without a patient's written consent.
[2019-02-05] MEDS ORDERED: Metoprolol XL (24 HR) Succ 50 MG TAB.ER.24H PO SCH (21:00)
== END 2019-02-05 13:49 | DRG 308 ==
LOC: EMEROOARM 08:08 → 2NENU 08:08 → SUATTDRO 02-02 10:55
PROVIDERS: ADMIT Internal Medicine; ATTEND Internal Medicine